=== PATIENT | female | born 1985 | race Hispanic/Latino ===

== ENCOUNTER 2017-11-18 22:31 | Emergency (ER) | payer SELFPAY | END 2017-11-19 01:05 | disposition home or self-care (01) | LOC: ERS 22:31 | DX: R60.0 Localized edema (principal) | CPT/HCPCS: 99281 ==

== ENCOUNTER 2017-12-22 14:13 | Outpatient (CLI) | payer SELFPAY | END 2017-12-22 14:14 | disposition home or self-care (01) | LOC: BICRAD 14:13 | PROVIDERS: ATTEND Family Medicine | DX: M25.541 Pain in joints of right hand (principal) ==